=== PATIENT | female | born 1955 | race Asian ===

== ENCOUNTER 2019-06-22 19:55 | Inpatient (IN) | payer OTHER ==
[~2019-06-22] VITALS: Ht 154.9 cm; Wt 66.3 kg
[2019-06-22 20:55] VITALS: Ht 154.9 cm; Wt 66.3 kg
[2019-06-22 23:31] LABS: CALCIUM 8.8 mg/dL (8.5-10.1); CARBON DIOXIDE 25.8 mmol/L (21-32); CHLORIDE SERUM 104 mmol/L (98-107); CREATININE SERUM 0.6 mg/dL (0.6-1.0); GFR1 > 60 mL/min; GLUCOSE SERUM 121 mg/dL (74-106); POTASSIUM SERUM 3.7 mmol/L (3.5-5.1); SODIUM SERUM 139 mmol/L (136-145)
[2019-06-22 23:33] LABS: BASOPHIL % 0.3 % (0-2); PLATELET COUNT 359 x10^3mcL (130-400); RED CELL DISTRIBUTION WIDTH 12.3 % (11.5-14.5)
[2019-06-22 23:35] LABS: ALKALINE PHOSPHATASE 88 U/L (46-116); ALT/SGPT 16 U/L (14-59); AST/SGOT 9 U/L (15-37); BILIRUBIN TOTAL 0.3 mg/dL (0.20-1.00); TOTAL PROTEIN, SERUM 7.2 g/dL (6.4-8.2)
[2019-06-22 23:41] LABS: ALBUMIN 3.1 g/dL (3.4-5.0); T3 TOTAL 1.2 ng/mL
[2019-06-22 23:44] LABS: FREE T4 1.49 ng/dL (0.76-1.46); T4(THYROXINE) 7.8 ug/dL (4.7-13.3)
[2019-06-23] MEDS ORDERED: MASON NATURAL1000 IU PO (03:12)
[2019-06-23 05:03] VITALS: BP 137/69
[2019-06-23 05:09] LABS: CHOLESTEROL/HDL RATIO 3.9; MAGNESIUM 2.2 mg/dL (1.8-2.4); PHOSPHOROUS 3.5 mg/dL (2.5-4.9)
[2019-06-23 05:24] VITALS: BP 125/55
[2019-06-23 07:01] LABS: BASOPHIL % 0.1 % (0-2); PLATELET COUNT 319 x10^3mcL (130-400); RED CELL DISTRIBUTION WIDTH 11.8 % (11.5-14.5)
[2019-06-23 07:36] LABS: CALCIUM 8.7 mg/dL (8.5-10.1); CARBON DIOXIDE 26.2 mmol/L (21-32); CHLORIDE SERUM 107 mmol/L (98-107); CREATININE SERUM 0.5 mg/dL (0.6-1.0); GFR1 > 60 mL/min; GLUCOSE SERUM 117 mg/dL (74-106); POTASSIUM SERUM 3.6 mmol/L (3.5-5.1); SODIUM SERUM 143 mmol/L (136-145)
[2019-06-23 07:37] VITALS: BP 116/51
[2019-06-23 10:19] LABS: UA SPECIFIC GRAVITY 1.015 (1.005-1.035); microscopic required? YES; urine erythrocyte TRACE (NEGATIVE)
[2019-06-23] MEDS ORDERED: LEVAQUIN500 M1 PO (11:27)
[2019-06-23] MEDS ORDERED: BD LACTINEX1.4 MG PO (11:46)
[2019-06-23 12:24] VITALS: BP 119/56
[2019-06-23 13:15] VITALS: BP 119/56
== END 2019-06-23 14:48 | disposition home or self-care (01) | DRG 139 ==
LOC: ED 19:55 → DU 06-23 03:42
PROVIDERS: Emergency Medicine; ADMIT Family Medicine
DX: J18.9 Pneumonia, unspecified organism (principal); E44.1 Mild protein-calorie malnutrition; E05.90 Thyrotoxicosis, unspecified without thyrotoxic crisis or storm; E04.9 Nontoxic goiter, unspecified; J45.909 Unspecified asthma, uncomplicated; D64.9 Anemia, unspecified; Z68.25 Body mass index [BMI] 25.0-25.9, adult; Z79.899 Other long term (current) drug therapy
CPT/HCPCS: 84439; 87804; 94150; G0378; J0456; J0696; J7030; J7620; J7626; Q9967